=== PATIENT | male | born 1955 | race Caucasian/White ===

== ENCOUNTER 2018-02-17 11:01 | Observation (INO) ==
[2018-02-17] MEDS ORDERED: Ipratropium/Albuterol Neb 3 ML IH ONE (11:34)
[2018-02-17] MEDS ORDERED: MethylPREDNISolone 40 MG/ML VIAL IVP ONE (11:36)
[2018-02-17] MEDS ORDERED: Aspirin 81 MG TAB.CHEW PO ONE (11:38)
[2018-02-17 12:10] LABS: Basophils % 0.3 %; Eosinophils % 0.3 %; Hematocrit 37.5 % (37.5-50.1); Hemoglobin 12.8 g/dL (12.9-16.9); Immature Granulocytes % 0.3 % (0-4); Lymphocytes # 1.3 K/mcL (0.6-4.6); Lymphocytes % 17.9 %; Mean Corpuscular HGB Conc 34.1 g/dL (31.6-35.5); Mean Corpuscular Volume 90.8 fL (83.0-100.0); Mean Platelet Volume 11.5 fL (9.4-12.4); Monocytes # 0.7 K/mcL (0.0-1.3); Monocytes % 9.3 %; Platelet Count 158 K/mcL (140-400); Red Blood Count 4.13 M/mcL (4.19-5.50); Red Cell Distribution Width 12.4 % (11.5-14.5); Segmented Neutrophils % 71.9 %
[2018-02-17 12:17] LABS: INR 1.1; Prothrombin Time 11.8 Seconds (9.4-12.1)
[2018-02-17 12:20] LABS: Activated Partial Thrombo Time 31.2 Seconds (26.0-36.0)
[2018-02-17 12:22] LABS: BUN/Creatinine Ratio 11 (6-26); Blood Urea Nitrogen 11 mg/dL (8-23); Calcium 8.8 mg/dL (8.6-10.3); Carbon Dioxide 21 mEq/L (23-29); Chloride 107 mEq/L (98-107); Glucose 99 mg/dL (70-105); Osmolality,Calculated 281 (280-300); Potassium 4.1 mEq/L (3.5-5.1); Sodium 136 mEq/L (136-145); Troponin I < 0.03 ng/mL (< 0.04); eGFR For African Americans > 60 (> 60); eGFR For Non-African Americans > 60 (> 60)
--- NOTE | 2018-02-17 12:31 | Emergency Department Note ---
Disposition Clinical Impression: Chest pain, COPD (chronic obstructive pulmonary disease), SOB (shortness of breath) Disposition: Admitted As Inpatient Condition: Fair Referrals: NONE,PCP [Primary Care Provider] - Forms: ED Satisfaction Letter Time of Disposition: 12:55 General Adult HPI - General Chief complaint: ED Chest Pain Stated complaint: CP Time Seen by Provider: 02/17/18 11:03 Source: patient Limitations: no limitations - History of Present Illness Pain Scale: 5 - Related Data Allergies Allergy/AdvReac Type Severity Reaction Status Date / Time Narcotics Allergy See Uncoded 02/17/18 11:11 Comments Past Medical History - Past Medical History Medical history: Reports: COPD Psychiatric history: Reports: no psych history - Social History Smoking Status: Current every day smoker Alcohol use: Reports: none Drug use: Reports: marijuana Physical Exam - General Limitations: no limitations General appearance: alert, in no apparent distress Course Vital Signs Temperature 97.7 F 02/17/18 11:03 Pulse Rate 57 02/17/18 11:03 Respiratory Rate 18 02/17/18 11:03 Blood Pressure 145/71 02/17/18 11:03 O2 Sat by Pulse Oximetry 98 02/17/18 11:03 Temperature 97.7 F 02/17/18 11:03 Pulse Rate 52 02/17/18 12:31 Respiratory Rate 18 02/17/18 12:31 Blood Pressure 169/85 02/17/18 12:31 O2 Sat by Pulse Oximetry 100 02/17/18 12:31 Oxygen Delivery Oxygen Delivery Room Air Medical Decision Making - Lab Data Result diagrams: 02/17/18 11:43 02/17/18 11:43 Lab Results 02/17/18 02/17/18 02/17/18 Range/Units 11:43 11:43 11:43 WBC 7.0 (4.3-11.1) K/mcL RBC 4.13 L (4.19-5.50) M/mcL Hgb 12.8 L (12.9-16.9) g/dL Hct 37.5 (37.5-50.1) % MCV 90.8 (83.0-100.0) fL MCH 31.0 (28.0-33.3) pg MCHC 34.1 (31.6-35.5) g/dL RDW 12.4 (11.5-14.5) % Plt Count 158 (140-400) K/mcL MPV 11.5 (9.4-12.4) fL Immature Gran % 0.3 (0-4) % Seg Neutrophils % 71.9 % Lymphocytes % 17.9 % Monocytes % 9.3 % Eosinophils % 0.3 % Basophils % 0.3 % Neutrophils # 5.0 (1.6-8.9) K/mcL Lymphocytes # 1.3 (0.6-4.6) K/mcL Monocytes # 0.7 (0.0-1.3) K/mcL Eosinophils # 0.0 (0.0-0.6) K/mcL Basophils # 0.0 (0.0-0.2) K/mcL PT 11.8 (9.4-12.1) Seconds INR 1.1 APTT 31.2 (26.0-36.0) Seconds Sodium 136 (136-145) mEq/L Potassium 4.1 (3.5-5.1) mEq/L Chloride 107 (98-107) mEq/L Carbon Dioxide 21 L (23-29) mEq/L BUN 11 (8-23) mg/dL Creatinine 0.96 (0.70-1.30) mg/dL Est GFR ( Amer) > 60 (> 60) Est GFR (Non-Af Amer) > 60 (> 60) BUN/Creatinine Ratio 11 (6-26) Glucose 99 (70-105) mg/dL Calculated Osmolality 281 (280-300) Calcium 8.8 (8.6-10.3) mg/dL Troponin I < 0.03 (< 0.04) ng/mL Attestation Statement - Attestation Attestation: I, Jasvir Whiting DO, examined this patient [id number] and my medical decision-making was reviewed with Ruiz Ceja PGY-1, Resident Physician. I agree with the documented findings, disposition and treatment plan as described except to the extent set forth below. Please see my progress notes for details. 62-year-old male presents to the emergency room for evaluation of chest discomfort and pain assessment present for 2-3 weeks. Patient has a history of smoking. Denies any history of COPD or emphysema. He does not have oxygen, breathing treatments or steroids at home. Patient says that the symptoms were coming on over that timeframe. He denies any chest pain fevers or chills nausea vomiting or diarrhea. He has had intermittent productive whitish clear sputum. Denies any recent antibiotic regimen or steroids. Physical exam shows a thin frail appearing gentleman with very diminished breath sounds bilaterally. Chest x-ray EKG CBC chemistry urinalysis and troponin will be added as well as a BNP. Patient will have treatments and steroids provider this time IV access. Patient does not have antibiotic regimen or this point despite the fact that the patient may require antibiotics for further treatment course and management. Patient most likely admission the hospital considering does have what appears to be a COPD exacerbation. Cardiac treatment course and evaluation will be established and completed as well. Disposition pending the full workup and treatment. Aspirin will be given here. See detailed documentation of the physical exam, medical intervention, medical decision- making and disposition in the resident physician's note. No critical care provider this patient's treatment course at this time. 1245 Patient is negative chest x-ray this time. Symptoms are getting better with the breathing treatments and steroids. Patient was given first dose of levofloxacin here in the emergency room. Patient is going to allow for admission this point considering does have what appears to be a significant COPD exacerbation. His troponin is negative at this time which effectively rules out cardiac ischemia secondary to the symptoms being present for over 2 weeks. Patient will be admitted for further workup and evaluation. Again, no critical care provider this patient's treatment course.
[2018-02-17] MEDS ORDERED: Levofloxacin 750 MG/150 ML 750 MG/150 ML BAG IVPB ONE (12:35)
--- NOTE | 2018-02-17 13:14 | Emergency Department Note ---
Disposition Clinical Impression: COPD (chronic obstructive pulmonary disease), SOB (shortness of breath), COPD exacerbation Chest pain Qualifiers: Chest pain type: unspecified Qualified Code(s): R07.9 - Chest pain, unspecified Disposition: Admitted As Inpatient Condition: Fair Time of Disposition: 12:30 Chest Pain HPI - General Chief Complaint: ED Chest Pain Stated Complaint: CP Time Seen by Provider: 02/17/18 11:03 Source: patient Mode of arrival: ambulatory Limitations: no limitations Vital Signs Reviewed: Yes - History of Present Illness HPI Narrative: Arnold Phelps is a 62-year-old male presenting with chest pain and shortness of breath of several weeks duration. He states that the chest pain is across his lower chest and "feels like someone has a strap around me." He states that it worsened with deep inspiration. Both the CP and SOB are worse at night while he is at rest, and he feels better if he gets up and walks around for a few minutes. He admits to cough with production of white phlegm. He denies palpitations, nausea, and vomiting. He has not seen a primary care physician in years, but states that his past medical history is significant only for COPD. He has 100+ pack years of smoking history. Severity scale (1-10): 5 - Related Data Home Medications Medication Instructions Recorded Confirmed No Known Home Drugs 02/17/18 02/17/18 Allergies Allergy/AdvReac Type Severity Reaction Status Date / Time Narcotics Allergy See Uncoded 02/17/18 13:22 Comments Constitutional: Denies: fever, chills Cardiovascular: Reports: chest pain. Denies: palpitations Respiratory: Reports: cough, dyspnea, sputum production Gastrointestinal: Denies: abdominal pain, nausea, vomiting Chest Pain PMH - Past Medical History Medical history: Reports: COPD Psychiatric history: Reports: no psych history - Social History Smoking Status: Current every day smoker Alcohol use: Reports: none Drug use: Reports: marijuana Physical Exam - General Limitations: no limitations General appearance: alert, in no apparent distress - Head Head exam: atraumatic, normocephalic - Respiratory Respiratory exam: Present: prolonged expiratory phase, other (decreased breath sounds) - Cardiovascular Cardiovascular exam: Present: regular rate, normal rhythm, normal heart sounds, +S1, +S2 - Extremities Exam Extremities exam: Absent: pedal edema - Neurological Exam Neurological exam: Present: alert, oriented X3 - Psychiatric Psychiatric exam: Present: normal affect, normal mood - Skin Skin exam: Present: warm, dry Course Course Narrative: Patient presents with several weeks of chest pain and shortness of breath. Physical exam favors COPD exacerbation > cardiac issue given very diminished breath sounds. Initiated cardiac workup with EKG, CXR, BMP, and troponin. Chest x-ray shows stigmata of COPD, otherwise all lab work was negative. Patient was administered a breathing treatment with slight improvement in symptoms. Also was administered IV steroids. Administered IV Levaquin due to production of sputum. Suspicion is for COPD exacerbation. Plan for admission for inpatient treatment. Spoke with admitting hospitalist who accepts the patient. Vital Signs Temperature 97.7 F 02/17/18 11:03 Pulse Rate 57 02/17/18 11:03 Respiratory Rate 18 02/17/18 11:03 Blood Pressure 145/71 02/17/18 11:03 O2 Sat by Pulse Oximetry 98 02/17/18 11:03 Temperature 97.7 F 02/17/18 11:03 Pulse Rate 52 02/17/18 12:31 Respiratory Rate 18 02/17/18 14:10 Blood Pressure 145/64 02/17/18 14:10 O2 Sat by Pulse Oximetry 100 02/17/18 12:31 Oxygen Delivery Oxygen Delivery Room Air Chest Pain - Medical Records Medical records reviewed: Yes I reviewed the patient's medical records. - Lab Data Lab results reviewed: Yes I reviewed the patient's lab results. Result diagrams: 02/17/18 11:43 02/17/18 11:43 Lab Results 02/17/18 02/17/18 02/17/18 Range/Units 11:43 11:43 11:43 WBC 7.0 (4.3-11.1) K/mcL RBC 4.13 L (4.19-5.50) M/mcL Hgb 12.8 L (12.9-16.9) g/dL Hct 37.5 (37.5-50.1) % MCV 90.8 (83.0-100.0) fL MCH 31.0 (28.0-33.3) pg MCHC 34.1 (31.6-35.5) g/dL RDW 12.4 (11.5-14.5) % Plt Count 158 (140-400) K/mcL MPV 11.5 (9.4-12.4) fL Immature Gran % 0.3 (0-4) % Seg Neutrophils % 71.9 % Lymphocytes % 17.9 % Monocytes % 9.3 % Eosinophils % 0.3 % Basophils % 0.3 % Neutrophils # 5.0 (1.6-8.9) K/mcL Lymphocytes # 1.3 (0.6-4.6) K/mcL Monocytes # 0.7 (0.0-1.3) K/mcL Eosinophils # 0.0 (0.0-0.6) K/mcL Basophils # 0.0 (0.0-0.2) K/mcL PT 11.8 (9.4-12.1) Seconds INR 1.1 APTT 31.2 (26.0-36.0) Seconds Sodium 136 (136-145) mEq/L Potassium 4.1 (3.5-5.1) mEq/L Chloride 107 (98-107) mEq/L Carbon Dioxide 21 L (23-29) mEq/L BUN 11 (8-23) mg/dL Creatinine 0.96 (0.70-1.30) mg/dL Est GFR ( Amer) > 60 (> 60) Est GFR (Non-Af Amer) > 60 (> 60) BUN/Creatinine Ratio 11 (6-26) Glucose 99 (70-105) mg/dL Calculated Osmolality 281 (280-300) Calcium 8.8 (8.6-10.3) mg/dL Troponin I < 0.03 (< 0.04) ng/mL - Radiology Data Radiology results reviewed: Yes I reviewed the patient's radiology results. Chest X-Ray 02/17/18 11:31 IMPRESSION: No acute process in the lungs. D/ / Jalen Boogie MD / Jalen Boogie MD Interpreting Provider: Jalen Boogie MD - EKG Data EKG attestation: Yes I reviewed and interpreted this EKG. EKG results narrative: Initial EKG 1104 normal sinus rhythm, possible peaked T waves in the V3 rate 61 MS 149 QRS 91 QT/QTC 419/423 Repeat EKG 1226 sinus bradycardia rate 50 MS 156 QRS 100 QT/QTC 456/428 Heart Score - Score History: Slightly Suspicious EKG: Normal Age: 45-65 Risk Factors: 1-2 risk factors Troponin: Less than normal limit HEART Score Total: 2 Attestation Statement - Attestation Attestation: I, Jasvir Whiting DO, examined this patient [id number] and my medical decision-making was reviewed with Ruiz Ceja PGY-1, Resident Physician. I agree with the documented findings, disposition and treatment plan as described except to the extent set forth below. Please see my progress notes for details.
--- NOTE | 2018-02-17 14:43 | Internal Med History&Physical ---
Date of Encounter: 02/17/18 Time of Encounter: 14:36 Assessment and Plan (1) COPD exacerbation Current visit: Yes Status: Acute We will continue IV steroids and antibiotics, nebulizer as scheduled (2) Chest pain Current visit: Yes Status: Acute Chest pain is atypical, will follow up troponin 3. We will check a d-dimer if is positive then we will need a CT scan angiogram Qualifiers: Chest pain type: unspecified Qualified Code(s): R07.9 - Chest pain, unspecified (3) Tobacco abuse Current visit: Yes Status: Acute Smoking cessation discussed will give nicotine patch Internal Medicine - H&P: HPI Chief complaint: SOB Admitted From: Home Plans for Post Hospital Care: Home History of present illness: Mr. Phelps is a 62 year old male who has no significant medical history, but smoking 2 packs daily presented to emergency room for cough, shortness of breath , chest pain for few weeks. Patient stated that he started feeling chest tightness, shortness of breasts few weeks ago, but he does not want to come to hospital, and try to deal with it. SOB progressively got worse, and that he also has been coughing up clear or yellow sputum. He came in today because last night he cannot fall asleep, unable to lie flat due to severe shortness of breath. He also complains of chest pain, pain is located to the right side jeronimo , sharp when he coughs or takes a deep breaths, on and off, 7 out of 10, most of time he feels whole chest is constructed unable to take deep breaths. In emergency room as he has negative chest x-ray and lab was unremarkable. trop is negative Patient is to be admitted for COPD exacerbation. Past Med Surg Social Fam HX - Past Medical History Medical history: COPD Psychiatric history: no psych history - Social History Smoking Status: Current every day smoker Alcohol use: none Drug use: marijuana Internal Medicine - H&P: Meds No Known Home Drugs 02/17/18 [History] 3 Allergy/AdvReac Type Severity Reaction Status Date / Time Narcotics Allergy See Uncoded 02/17/18 13:22 Comments All Systems PM: A 10-system review of systems was performed and is negative for pertinent findings except as documented above in the HPI. - Constitutional Vitals: Temp Pulse Resp BP Pulse Ox 97.7 F 52 18 145/64 100 02/17/18 11:03 02/17/18 12:31 02/17/18 14:10 02/17/18 14:10 02/17/18 12:31 General appearance: Present: cachectic, A&O X 3, pleasant Exam: CONSTITUTIONAL: Patient appears as an age appropriate male well developed, in no acute distress. EYES Clear sclerae, bilateral pupils are equal, reactive to light and accommodation. Extraocular movements are intact RESPIRATORY: No accessory muscle use, bilateral reduced breath sounds, scattered wheezing to auscultation, no crackles/rales. CARDIOVASCULAR: Regular heart rate, normal S1 and S2, no murmurs GASTROINTESTINAL: bowel sounds present, soft, no tenderness. No hepatosplenomegaly. No bilateral CVA tenderness MUSCULOSKELETAL: Joints in normal range of motion, no clubbing, no edema, no cyanosis. Bilateral peripheral pulses 2+ LYMPHATIC no lymphadenopathy in neck, groin and axilla bilaterally, no thyromegaly. NEUROLOGIC: CN II to XII are grossly intact, no focal neurological deficit. Deep tendon reflexes 2+ bilaterally. Normal light touch sensation to upper and lower extremity PSYCHIATRIC: Oriented x3, with good insight, mood is euthymic. No hallucinations or delusions. SKIN: Skin warm and dry, no rashes, no open wound. Internal Med - H&P Results - Labs CBC & Chem 7: 02/17/18 11:43 02/17/18 11:43
[2018-02-17] MEDS ORDERED: Naloxone 0.4 MG/ML INJ IVP PRN (14:52)
[2018-02-17] MEDS: Nicotine 21 MG PATCH.TD24 TD SCH (15:26)
[2018-02-17] MEDS: methylPREDNISolone 125 MG/2 ML VIAL IVP SCH ×2 (15:57→23:26)
[2018-02-17] MEDS: Ipratropium/Albuterol Neb 3 ML IH SCH ×2 (16:06→20:37)
[2018-02-17] MEDS ORDERED: Acetaminophen 325 MG TABLET PO PRN (20:06)
[2018-02-17] MEDS: *HR* Heparin 5,000 UNIT/ML VIAL SQ SCH (23:25)
[2018-02-18] MEDS: Ipratropium/Albuterol Neb 3 ML IH SCH ×5 (00:21→15:40)
[2018-02-18 03:32] LABS: Hematocrit 33.9 % (37.5-50.1); Hemoglobin 11.6 g/dL (12.9-16.9); Mean Corpuscular HGB Conc 34.2 g/dL (31.6-35.5); Mean Corpuscular Hemoglobin 31.4 pg (28.0-33.3); Mean Corpuscular Volume 91.6 fL (83.0-100.0); Mean Platelet Volume 11.2 fL (9.4-12.4); Platelet Count 193 K/mcL (140-400); Red Cell Distribution Width 12.3 % (11.5-14.5)
[2018-02-18 03:46] LABS: BUN/Creatinine Ratio 15 (6-26); Blood Urea Nitrogen 15 mg/dL (8-23); Carbon Dioxide 22 mEq/L (23-29); Chloride 108 mEq/L (98-107); Cholesterol 136 mg/dL (< 200); Glucose 191 mg/dL (70-105); HDL Cholesterol 46 mg/dL (40-59); LDL Cholesterol,Calculated 80 mg/dL (0-99); Magnesium 2.2 mg/dL (1.6-2.6); Osmolality,Calculated 294 (280-300); Potassium 3.8 mEq/L (3.5-5.1); Sodium 139 mEq/L (136-145); Triglycerides 50 mg/dL (< 150); eGFR For African Americans > 60 (> 60); eGFR For Non-African Americans > 60 (> 60)
[2018-02-18] MEDS: *HR* Heparin 5,000 UNIT/ML VIAL SQ SCH (05:06)
[2018-02-18 06:58] VITALS: BP 148/71
[2018-02-18] MEDS: Nicotine 21 MG PATCH.TD24 TD SCH (08:08)
[2018-02-18] MEDS: methylPREDNISolone 125 MG/2 ML VIAL IVP SCH (08:08)
[2018-02-18] MEDS ORDERED: levoFLOXacin 750 MG TABLET PO SCH (09:00)
--- NOTE | 2018-02-18 19:08 | Discharge Summary ---
- NOTES TO OUTPATIENT PROVIDER Notes to Outpatient Provider: Pt signed out AMA, did not finish treatment. Orders not resulted at time of discharge: Pending orders 02/18/18 08:09 Respiratory Infection Panel [[facility]OLMIC] Routine Date of Encounter: 02/18/18 Time of Encounter: 11:30 - Discharge Diagnosis (1) COPD exacerbation Priority: Primary Status: Acute Comments: Acute exacerbation. Patient with wheezing, obvious shortness of breath. Continue nebulizer, IV steroids, IV antibiotics, O2 as needed to maintain sats greater than 92%. Chest X-Ray 02/17/18 11:31 IMPRESSION: No acute process in the lungs. D/ / Jalen Boogie MD / Jalen Boogie MD Interpreting Provider: Jalen Boogie MD (2) Chest pain Priority: Primary Status: Acute Comments: Chest pain reproducible with palpation and deep inspiration. Atypical chest pain. Troponins are negative 3. Qualifiers: Chest pain type: unspecified Qualified Code(s): R07.9 - Chest pain, unspecified (3) SOB (shortness of breath) Priority: Secondary Status: Acute Comments: Patient obviously shortness of breath. Patient requiring supplemental oxygen to maintain sats. Patient with wheezing noted in anterior lung osborne. (4) Tobacco abuse Priority: Secondary Status: Chronic Comments: Patient with nicotine patch. Hospital course: Mr. Phelps is a 62 year old male with past medical history of COPD. Patient admitted for acute exacerbation of COPD, shortness of breath. Chest pain. Pain was reproducible with palpation and deep inspiration. Patient reports that he has atenolol on forecasted home that needs to be cared for any needed to leave. was at bedside. She does not drive. They do not have any family or friends who can help with the animals or give him a ride. Patient reported that he needed to leave. I personally called the [employer] , Police Department, and hospital security to try to find a ride for patient's . Another hospitalist ASTROBIOLOGIST and I offered to pay for a cab. Patient insisted that they were leaving, became angry and stated we were not doing anything for him. Patient signed out AGAINST MEDICAL ADVICE. - Time Spent with Patient Total time spent providing and/or coordinating discharge services: Less than 30 minutes - Discharge Medications Home Medications: No Known Home Drugs 02/17/18 [History] Allergies/Adverse Reactions: 3 Allergy/AdvReac Type Severity Reaction Status Date / Time Narcotics Allergy See Uncoded 02/17/18 13:22 Comments Date of admission: 02/17/18 13:43 Primary care physician: PCP NONE Discharging clinician: Ruma Thapa Anticipated date of discharge: 02/18/18 - Constitutional Vitals: Temp Pulse Resp BP Pulse Ox 98.0 F 76 17 148/71 67 02/18/18 06:56 02/18/18 06:56 02/18/18 06:56 02/18/18 06:56 02/18/18 07:36 General appearance: Present: cachectic, mild distress, A&O X 3, pleasant, answers questions appropriately - Head Head exam: Present: atraumatic, normal inspection, normocephalic - Eye Eye exam: Present: normal appearance, conjuntiva pink, sclera anicteric - Neck Neck exam general surgery: Present: supple, trachea midline. Absent: lymphadenopathy - Respiratory Respiratory exam: Present: CTAB, respiratory distress, wheezes. Absent: accessory muscle use, chest wall tenderness, rales, rhonchi - Cardiovascular Cardiovascular exam: Present: RRR, +S1, +S2. Absent: diastolic murmur, gallop, rubs, systolic murmur - GI/Abdominal GI/Abdominal exam: Present: normal bowel sounds, soft. Absent: distended, tenderness - Extremities Exam Extremities exam: Present: normal capillary refill, normal inspection, warm, radial pulses palpable and symmetrical. Absent: calf tenderness, cyanotic, pedal edema, tenderness - Neurological Exam Neurological exam: Present: alert, oriented X3, no focal deficits. Absent: facial droop, speech deficit - Skin Skin exam: Present: dry, intact, normal color, warm. Absent: rash - Patient Status Disposition: Left Against Medical Advice Condition: Fair - Discharge Instructions Follow Up With: NONE,PCP [Primary Care Provider] -
--- NOTE | 2018-02-19 14:39 | Electrocardiograph Report ---
[place] [id number] Test Date: 2018-02-17 Pat Name: Arnold Phelps Department: 103 Room: 3B37 Gender: M [employer]: JIM : 1955 Requested By: Ruiz Ceja Order Number: [id number] Reading MD: Giancarlo Khan Measurements Intervals [place] Rate: 61 P: 76 [place]: 149 QRS: 58 QRSD: 91 T: 71 QT: 419 QTc: 423 Interpretive Statements SINUS RHYTHM MINIMAL VOLTAGE CRITERIA FOR LVH, CONSIDER NORMAL VARIANT Electronically Signed On 02-19-2018 14:38:11 EDT by Giancarlo Khan
--- NOTE | 2018-02-19 14:39 | Electrocardiograph Report ---
[address] [address] Test Date: 2018-02-17 Pat Name: Arnold Phelps Department: 103 Room: 3B37 Gender: M Chief Chemist: JIM : 1955 Requested By: Ruiz Ceja Order Number: [id number] Reading MD: Giancarlo Khan Measurements Intervals [place] Rate: 50 P: 78 [place]: 156 QRS: 72 QRSD: 100 T: 76 QT: 456 QTc: 428 Interpretive Statements SINUS BRADYCARDIA MODERATE VOLTAGE CRITERIA FOR LVH, CONSIDER NORMAL VARIANT BASELINE ARTIFACT Poor R wave progression Electronically Signed On 02-19-2018 14:38:32 EDT by Giancarlo Khan
== END 2018-02-18 12:24 | disposition left against medical advice (07) ==
LOC: 3BNU 11:01 → EMEROO 11:01 → 3BNU 14:10
PROVIDERS: ADMIT Hospitalist; ATTEND Registered Nurse